=== PATIENT | male | born 1935 | race Caucasian/White ===

== ENCOUNTER → 2016-09-25 | Outpatient (CLI) | payer MEDICARE ==
[~2016-09-25] MED LIST: ASPIR 8181 MG PO; AVAPRO300 MG PO; CADUET 5 MG-401 EACH PO; CENTRUM COMPLE1 EACH; CENTRUM COMPLE1 EACH PO; COLACE 100MG C100 MG PO; FOLIC ACID1 MG PO; MELATONIN5 M2 PO; MIRALAX17 GM PO; MYRBETRIQ50 MG PO; PROSCAR 5 MG TAB5 MG PO; ROPINIROLE HCL2 MG PO; SEROQUEL50 MG PO; SINGULAIR10 MG PO; THIAMINE HCL100 MG PO; TYLENOL 325MG325 MG PO; VITAMIN D1000 UNI1 PO; XARELTO20 MG PO; ZYRTEC10 MG PO; [UNRECOGNIZED DRUG - OTHER] PO
== END ==
LOC: LAB 19:23
DX: R31.9 Hematuria, unspecified (principal)
CPT/HCPCS: 81001; 87086